=== PATIENT | female | born 1940 | race Asian ===

== ENCOUNTER → 2017-03-17 | Outpatient (CLI) | payer OTHER ==
--- NOTE | ~2017-03-17 | US6 ---
[facility] A Service of [facility] & [facility] RADIOLOGY TEXT RESULTS PATIENT: REBECCA VALDOVINOS LOCATION: [facility] : 44 UNIT #: [id number] AGE: [address]: Moris Coronel MD SEX: F ORDER DR: [id number] [facility] [address] [place], [place] [address] [id number] O MR#: [id number] Acc #: [id number] NAME: REBECCA VALDOVINOS : 1940 SEX: F STUDY DATE/TIME: 03/17/2017 9:12 UNIT: [facility] ROOM: STUDY DESCRIPTION: US Abdominal Limited Attending Physician: Moris Coronel M.D. Referring Physician: Moris Coronel M.D. Ordering Physician: Moris Coronel M.D. Primary Care Physician: Crys Chu MEDICAL IMAGING REPORT This report is preliminary unless electronic signature is present EXAM Right upper quadrant ultrasound 03/17/2017 HISTORY Chronic hepatitis B. Observation for hepatocellular carcinoma. FINDINGS The liver demonstrates a somewhat coarsened echotexture but no cystic or solid mass lesions were seen in the liver. The intra and extrahepatic bile ducts are not dilated. The gallbladder is normal with no evidence of cholelithiasis, wall thickening or pericholecystic fluid. The common duct measures 3 mm. The pancreas and right kidney are normal. IMPRESSION Coarsened liver echotexture. No cystic or solid mass lesions were seen in the liver. 2. Normal gallbladder. Dictated by... Salazar Parnell M.D. THIS IS AN ELECTRONICALLY VERIFIED REPORT Salazar Parnell M.D. at 03/18/2017 8:02 AM KRT/to TD: 03/17/2017 12:14 JOB #: [id number] MEDICAL IMAGING REPORT Page 1 of 1 COPY
== END | disposition home or self-care (01) ==
LOC: CGUS 07:11
DX: B18.1 Chronic viral hepatitis B without delta-agent (principal)
CPT/HCPCS: 76705